=== PATIENT | female | born 1950 | race African-American/Black ===

== ENCOUNTER 2018-02-23 14:34 | Observation (INO) ==
[2018-02-23] MEDS ORDERED: NITROGLYCERIN 2% OINT 1 INCH/GM PACK TOP STA (14:59)
[2018-02-23] MEDS ORDERED: ONDANSETRON 4 MG/2 ML VIAL IV PRN (14:59)
[2018-02-23] MEDS ORDERED: MORPHINE 4 MG/1 ML VIAL IV PRN (14:59)
[2018-02-23] MEDS ORDERED: METOPROLOL TARTRATE 5 MG/5 ML VIAL IV STA (14:59)
[2018-02-23] MEDS ORDERED: ENOXAPARIN 100 MG/ML SYRINGE SUBCUT STA (14:59)
[2018-02-23] MEDS ORDERED: ASPIRIN 325 MG TABLET PO STA (14:59)
[2018-02-23 15:35] LABS: Basophils % 0.2 % (0.0-0.8); Eosinophils # 0.1 10*3/uL (0.0-0.87); Hematocrit 38.1 VOL% (35.7-47.0); Hemoglobin 12.9 GM/DL (12.0-16.0); Immature Granulocytes % 0.5 %; Immature Granulocytes Absolute 0.03 #; Lymphocytes # 1.5 10*3/uL (1.4-4.0); Lymphocytes % 24.7 % (21.3-54.2); Mean Corpuscular HGB Conc 33.9 GM/DL (32-36); Mean Corpuscular Hemoglobin 26 PG (27-34); Mean Corpuscular Volume 76.7 FL (87-102); Mean Platelet Volume 9.6 FL (9.6-12.0); Monocytes # 0.5 10*3/uL (0.11-0.8); Neutrophils # 3.9 10*3/uL (1.4-7.4); Neutrophils % 64.6 % (38.7-73.9); Platelet Count 169 T/CUMM (130-400); Red Blood Count 4.97 MC/CUMM (3.8-5.5); Red Cell Distribution Width 15.1 % (9.3-17.3)
[2018-02-23 15:56] LABS: Platelet Estimate Adequate
[2018-02-23 15:59] LABS: Albumin 3.8 G/DL (3.4-5.0); Bilirubin,Total 0.4 MG/DL (0.2-1.0); Calcium 8.4 MG/DL (8.5-10.1); Osmolality,Calculated 292.1 MOS/KG (273-304); Potassium 4.1 MMOL/L (3.5-5.1)
[2018-02-23 16:00] LABS: INR 0.9; PT Patient Result 9.6 SECS; Partial Thromboplastin Time 23.7 SECS (0-40)
[2018-02-23] MEDS ORDERED: MAGNESIUM SULF RIDER 2 GM in PREMIX 1 EACH IV PRN (16:19)
[2018-02-23] MEDS ORDERED: MAGNESIUM SULF RIDER 4 GM in PREMIX 1 EACH IV PRN (16:19)
[2018-02-23] MEDS ORDERED: POTASSIUM CHLORIDE 20 MEQ TABLET PO PRN (16:19)
[2018-02-23] MEDS ORDERED: ACETAMINOPHEN 325 MG TABLET PO PRN (16:19)
[2018-02-23] MEDS ORDERED: POTASSIUM CHLORIDE 20 MEQ/15 ML UDCUP PER TUBE PRN (16:19)
[2018-02-23] MEDS ORDERED: ZALEPLON 5 MG CAPSULE PO PRN (16:19)
[2018-02-23] MEDS ORDERED: NITROGLYCERIN SL 0.4 MG TABLET SL STA (16:40)
[2018-02-23] MEDS ORDERED: PRASUGREL 10 MG TABLET PO STA (16:41)
[2018-02-23] MEDS: PANTOPRAZOLE 40 MG TABLET PO SCH (20:00)
[2018-02-23] MEDS: ENOXAPARIN 30 MG/0.3 ML SYRINGE SUBCUT SCH (20:00)
[2018-02-23] MEDS: cloNIDine 0.1 MG TABLET PO SCH (21:13)
[2018-02-23] MEDS: INSULIN REGULAR 100 UNIT/ML SUBCUT SCH (21:14)
[2018-02-24 03:32] LABS: Basophils % 0.2 % (0.0-0.8); Eosinophils # 0.1 10*3/uL (0.0-0.87); Eosinophils % 0.9 % (0.00-10.9); Hematocrit 35.5 VOL% (35.7-47.0); Hemoglobin 11.9 GM/DL (12.0-16.0); Immature Granulocytes % 0.5 %; Immature Granulocytes Absolute 0.03 #; Lymphocytes # 1.7 10*3/uL (1.4-4.0); Lymphocytes % 26.3 % (21.3-54.2); Mean Corpuscular HGB Conc 33.5 GM/DL (32-36); Mean Corpuscular Hemoglobin 26 PG (27-34); Mean Corpuscular Volume 76.7 FL (87-102); Mean Platelet Volume 10.6 FL (9.6-12.0); Monocytes # 0.5 10*3/uL (0.11-0.8); Monocytes % 8.2 % (1.7-12.7); Neutrophils # 4.1 10*3/uL (1.4-7.4); Neutrophils % 63.9 % (38.7-73.9); Platelet Count 172 T/CUMM (130-400); Red Blood Count 4.63 MC/CUMM (3.8-5.5); White Blood Count 6.4 T/CUMM (4-12)
[2018-02-24 04:01] LABS: Calcium 8.4 MG/DL (8.5-10.1); Osmolality,Calculated 295.1 MOS/KG (273-304); Potassium 3.7 MMOL/L (3.5-5.1)
[2018-02-24 04:04] LABS: Calcium 8.3 MG/DL (8.5-10.1); Osmolality,Calculated 294.1 MOS/KG (273-304); Potassium 3.7 MMOL/L (3.5-5.1); Risk Ratio 4.41; VLDL CHOLESTEROL 31.4 MG/DL
[2018-02-24] MEDS: INSULIN REGULAR 100 UNIT/ML SUBCUT SCH ×4 (10:08→21:16)
[2018-02-24] MEDS: NITROGLYCERIN SL 0.4 MG TABLET SL SCH (10:44)
[2018-02-24] MEDS: NEBIVOLOL 10 MG TABLET PO SCH (14:06)
[2018-02-24] MEDS: cloNIDine 0.1 MG TABLET PO SCH ×3 (14:07→21:16)
[2018-02-24] MEDS: ASPIRIN EC 81 MG TABLET PO SCH (14:07)
[2018-02-24] MEDS: PRASUGREL 10 MG TABLET PO SCH (14:07)
[2018-02-24] MEDS: PANTOPRAZOLE 40 MG TABLET PO SCH (14:10)
[2018-02-24] MEDS: ENOXAPARIN 30 MG/0.3 ML SYRINGE SUBCUT SCH (15:56)
[2018-02-25 03:51] LABS: Basophils % 0.3 % (0.0-0.8); Eosinophils # 0.1 10*3/uL (0.0-0.87); Eosinophils % 1.2 % (0.00-10.9); Hematocrit 35.1 VOL% (35.7-47.0); Hemoglobin 11.7 GM/DL (12.0-16.0); Immature Granulocytes % 0.5 %; Immature Granulocytes Absolute 0.04 #; Lymphocytes % 27.3 % (21.3-54.2); Mean Corpuscular HGB Conc 33.3 GM/DL (32-36); Mean Corpuscular Hemoglobin 26 PG (27-34); Mean Platelet Volume 10.2 FL (9.6-12.0); Monocytes # 0.7 10*3/uL (0.11-0.8); Monocytes % 8.7 % (1.7-12.7); Neutrophils # 4.6 10*3/uL (1.4-7.4); Platelet Count 181 T/CUMM (130-400); Red Cell Distribution Width 14.9 % (9.3-17.3); White Blood Count 7.4 T/CUMM (4-12)
[2018-02-25 04:15] LABS: Calcium 8.4 MG/DL (8.5-10.1); Osmolality,Calculated 293.7 MOS/KG (273-304); Potassium 3.7 MMOL/L (3.5-5.1)
[2018-02-25] MEDS ORDERED: REGADENOSON 0.4 MG/5 ML SYRINGE IV ONE (06:19)
[2018-02-25 08:18] VITALS: BP 150/78
[2018-02-25] MEDS: cloNIDine 0.1 MG TABLET PO SCH (08:48)
[2018-02-25] MEDS: PANTOPRAZOLE 40 MG TABLET PO SCH (08:48)
[2018-02-25] MEDS: PRASUGREL 10 MG TABLET PO SCH (08:48)
[2018-02-25] MEDS: NEBIVOLOL 10 MG TABLET PO SCH (08:48)
[2018-02-25] MEDS: ASPIRIN EC 81 MG TABLET PO SCH (08:48)
[2018-02-25] MEDS: NITROGLYCERIN SL 0.4 MG TABLET SL SCH (08:51)
[2018-02-25] MEDS: INSULIN REGULAR 100 UNIT/ML SUBCUT SCH (08:55)
== END 2018-02-25 11:33 | disposition home or self-care (01) ==
LOC: EDBD → N.ED 14:34 → N.EDINP 14:34 → N.TELEN 17:37 → N.TELES 17:38
PROVIDERS: ADMIT Internal Medicine Cardiovascular Disease; ATTEND Internal Medicine Cardiovascular Disease